=== PATIENT | female | born 1975 | race Caucasian/White ===

== ENCOUNTER 2017-05-23 17:35 | Emergency (ER) | payer SELFPAY ==
[~2017-05-23] VITALS: Ht 167.6 cm; Wt 61.0 kg
[2017-05-23 17:47] VITALS: BP 154/85
[2017-05-23] MEDS ORDERED: ALPR0.25 PO (17:49)
[2017-05-23] MEDS ORDERED: DIVAL250 PO (17:49)
== END 2017-05-23 22:00 | disposition left against medical advice (07) ==
LOC: ER 17:35
DX: Z00.8 Encounter for other general examination (principal); Z53.21 Procedure and treatment not carried out due to patient leaving prior to being seen by health care provider